=== PATIENT | female | born 1990 | race African-American/Black ===

== ENCOUNTER 2021-01-25 11:34 | Emergency (ER) | payer OTHER ==
[2021-01-25] MEDS ORDERED: Ketorolac Tromethamine 30 MG/ML VIAL ONE (12:45)
== END 2021-01-25 12:49 | disposition home or self-care (01) ==
LOC: ERS 11:34
DX: T23.202A Burn of second degree of left hand, unspecified site, initial encounter (principal); X19.XXXA Contact with other heat and hot substances, initial encounter
CPT/HCPCS: 96372; 99283; J1885